=== PATIENT | male | born 1940 | race Caucasian/White ===

== ENCOUNTER 2019-02-22 12:39 | Emergency (ER) | payer MEDICARE ==
[~2019-02-22] VITALS: Ht 170.1 cm; Wt 99.8 kg
[~2019-02-22 12:39] MED LIST: ATENOLOL25 MG PO; HYZAAR 50/12.5M1 TAB PO; KLOR-CON 88 MEQ PO; LASIX20 MG PO; METFORMIN750 MG PO; NOVALIN 70/30; OMEPRAZOLE20 MG PO; PRILOSEC20 MG PO; PROAIR HFA0.09 MG/AC INH; TERAZOSIN HCL2 M1 PO; ZANTAC 7575 MG PO; [UNRECOGNIZED DRUG - OTHER]
[2019-02-22 12:40] VITALS: BP 177/78
[2019-02-22] MEDS ORDERED: CEPHALEXIN500 M1 PO (13:58)
== END 2019-02-22 14:09 | disposition home or self-care (01) ==
LOC: ED 12:39
DX: S51.012A Laceration without foreign body of left elbow, initial encounter (principal); Z79.899 Other long term (current) drug therapy; W01.198A Fall on same level from slipping, tripping and stumbling with subsequent striking against other object, initial encounter; Y93.89 Activity, other specified; Y92.098 Other place in other non-institutional residence as the place of occurrence of the external cause; Y99.8 Other external cause status

== ENCOUNTER → 2019-12-18 | Outpatient (CLI) | payer MEDICARE ==
[~2019-12-18] MED LIST changes: +CEPHALEXIN500 M1 PO
[2019-12-18 10:36] LABS: BASO % 0.3 % (0.0-1.0); EOS # 0.1 10*3/uL (0.0-0.4); HEMATOCRIT 31.5 % (42.0-52.0); LYMPH # 1.3 10*3/uL (1.3-4.4); LYMPH % 20.2 % (27.0-41.0); MEAN CELL VOLUME 92.9 fl (80.0-94.0); MEAN CORPUSCULAR HGB 30.1 pg (27.0-31.0); MEAN CORPUSCULAR HGB CONC 32.4 g/dl (33.0-37.0); MEAN PLATELET VOLUME 10.3 fl (9.6-12.3); MONO # 0.6 10*3/uL (0.1-1.0); MONO % 9.8 % (3.0-9.0); NEUT # 4.3 10*3/uL (2.3-7.9); NEUT % 67.4 % (47.0-73.0); PLATELET COUNT AUTOMATED 163 10*3/uL (130-400); RED BLOOD COUNT 3.39 10*6/uL (4.50-5.90); WHITE BLOOD COUNT 6.4 10*3/uL (4.8-10.8)
[2019-12-18 11:05] LABS: ALBUMIN 3.6 gm/dl (3.1-4.5); CREATININE 1.75 mg/dL (0.70-1.30); POTASSIUM 4.8 mmol/L (3.5-5.1); THYROXINE (T4) TOTAL 5.3 ug/dl (4.5-12.1); TOTAL PROTEIN 7.4 gm/dL (6.4-8.2)
[2019-12-18 11:11] LABS: THYROID STIM HORMONE (HS) 1.94 uIU/ml (0.358-4.75)
[2019-12-18 11:26] LABS: VITAMIN D, 25-HYDROXY 28.3 ng/mL (30-100)
== END | disposition home or self-care (01) ==
LOC: LAB 10:00
PROVIDERS: Internal Medicine
DX: Z12.5 Encounter for screening for malignant neoplasm of prostate (principal); I34.1 Nonrheumatic mitral (valve) prolapse; I10 Essential (primary) hypertension; I51.7 Cardiomegaly; E78.5 Hyperlipidemia, unspecified; E03.9 Hypothyroidism, unspecified; D51.0 Vitamin B12 deficiency anemia due to intrinsic factor deficiency; E55.9 Vitamin D deficiency, unspecified; D51.1 Vitamin B12 deficiency anemia due to selective vitamin B12 malabsorption with proteinuria

== ENCOUNTER → 2020-02-20 | Outpatient (CLI) | payer MEDICARE ==
[~2020-02-20] MED LIST changes: +AMARYL1 M1 PO; +HYDROCHLOROTH12.5 M3 PO; +LASIX40 MG PO; +LISINOPRIL10 M1 PO; +NOVOLIN 70100 UNIT/2 SQ; +VITAMIN B121000 MC1 IM; +VITAMIN D350 MCG PO; +[UNRECOGNIZED DRUG - OTHER] PO
== END | disposition home or self-care (01) ==
LOC: COVID19 00:27
DX: Z11.59 Encounter for screening for other viral diseases (principal)

== ENCOUNTER → 2020-02-27 | Day surgery (SDC) | payer MEDICARE ==
[~2020-02-27] VITALS: Ht 175.2 cm; Wt 98.0 kg
[2020-02-27 07:38] VITALS: BP 101/81
[2020-02-27 08:34] VITALS: BP 109/59
[2020-02-27 08:49] VITALS: BP 122/71
[2020-02-27 09:04] VITALS: BP 114/62
== END | disposition home or self-care (01) ==
LOC: SDC 02-23 08:45
DX: R19.7 Diarrhea, unspecified (principal); K44.9 Diaphragmatic hernia without obstruction or gangrene; K52.89 Other specified noninfective gastroenteritis and colitis; K29.70 Gastritis, unspecified, without bleeding; J44.9 Chronic obstructive pulmonary disease, unspecified; F41.9 Anxiety disorder, unspecified; K64.0 First degree hemorrhoids; I11.0 Hypertensive heart disease with heart failure; I50.9 Heart failure, unspecified; E11.9 Type 2 diabetes mellitus without complications; K21.9 Gastro-esophageal reflux disease without esophagitis; Z83.3 Family history of diabetes mellitus; Z82.49 Family history of ischemic heart disease and other diseases of the circulatory system

== ENCOUNTER 2020-07-27 21:49 | Emergency (ER) | payer MEDICARE ==
[~2020-07-27] VITALS: Wt 98.9 kg
[2020-07-27 21:58] VITALS: BP 140/59
[2020-07-27 22:31] LABS: BASO % 0.4 % (0.0-1.0); EOS # 0.3 10*3/uL (0.0-0.4); EOS % 5.5 % (1.0-4.0); HEMATOCRIT 32.6 % (42.0-52.0); LYMPH # 1.1 10*3/uL (1.3-4.4); LYMPH % 20.4 % (27.0-41.0); MEAN CORPUSCULAR HGB 30.6 pg (27.0-31.0); MEAN CORPUSCULAR HGB CONC 32.2 g/dl (33.0-37.0); MONO # 0.6 10*3/uL (0.1-1.0); MONO % 10.6 % (3.0-9.0); NEUT # 3.3 10*3/uL (2.3-7.9); NEUT % 62.9 % (47.0-73.0); PLATELET COUNT AUTOMATED 185 10*3/uL (130-400); RED BLOOD COUNT 3.43 10*6/uL (4.50-5.90); RED CELL DISTRI WIDTH 11.9 % (0-14.5); WHITE BLOOD COUNT 5.3 10*3/uL (4.8-10.8)
[2020-07-27 22:47] LABS: ALBUMIN 3.4 gm/dl (3.1-4.5); CREATININE 1.67 mg/dL (0.70-1.30); POTASSIUM 4.5 mmol/L (3.5-5.1); TOTAL PROTEIN 7.1 gm/dL (6.4-8.2)
[2020-07-27] MEDS ORDERED: DECADRON6 M1 PO ×2 (23:45)
[2020-07-27] MEDS ORDERED: ZITHROMAX250 MG PO ×2 (23:45)
== END 2020-07-28 00:47 | disposition home or self-care (01) ==
LOC: ED 21:49
PROVIDERS: Internal Medicine
DX: J44.9 Chronic obstructive pulmonary disease, unspecified (principal); Z20.828 Contact with and (suspected) exposure to other viral communicable diseases; D53.9 Nutritional anemia, unspecified; N17.9 Acute kidney failure, unspecified; Z79.899 Other long term (current) drug therapy

== ENCOUNTER 2020-08-17 13:03 | Emergency (ER) | payer MEDICARE ==
[~2020-08-17] VITALS: Ht 170.1 cm; Wt 97.1 kg
[~2020-08-17 13:03] MED LIST changes: +DECADRON6 M1 PO; +ZITHROMAX250 MG PO
[2020-08-17 14:23] VITALS: BP 134/54
[2020-08-17 14:28] LABS: BASO % 0.2 % (0.0-1.0); EOS # 0.1 10*3/uL (0.0-0.4); EOS % 2.6 % (1.0-4.0); HEMATOCRIT 29.7 % (42.0-52.0); LYMPH # 0.7 10*3/uL (1.3-4.4); MEAN CELL VOLUME 95.5 fl (80.0-94.0); MEAN CORPUSCULAR HGB 31.2 pg (27.0-31.0); MEAN CORPUSCULAR HGB CONC 32.7 g/dl (33.0-37.0); MEAN PLATELET VOLUME 9.7 fl (9.6-12.3); MONO # 0.5 10*3/uL (0.1-1.0); MONO % 9.5 % (3.0-9.0); NEUT # 3.6 10*3/uL (2.3-7.9); NEUT % 72.3 % (47.0-73.0); PLATELET COUNT AUTOMATED 102 10*3/uL (130-400); RED BLOOD COUNT 3.11 10*6/uL (4.50-5.90); WHITE BLOOD COUNT 4.9 10*3/uL (4.8-10.8)
[2020-08-17 14:38] LABS: ALBUMIN 2.6 gm/dl (3.1-4.5); CREATININE 1.5 mg/dL (0.70-1.30); POTASSIUM 4.5 mmol/L (3.5-5.1); TOTAL PROTEIN 5.9 gm/dL (6.4-8.2)
[2020-08-17] MEDS ORDERED: XARELTO20 M1 PO (14:53)
[2020-08-17] MEDS ORDERED: XARELTO1 EACH PO (14:53)
== END 2020-08-17 15:03 | disposition home or self-care (01) ==
LOC: ED 13:03
PROVIDERS: Registered Nurse
DX: I82.462 Acute embolism and thrombosis of left calf muscular vein (principal); E11.9 Type 2 diabetes mellitus without complications; J44.9 Chronic obstructive pulmonary disease, unspecified; I11.0 Hypertensive heart disease with heart failure; I50.9 Heart failure, unspecified; K21.9 Gastro-esophageal reflux disease without esophagitis; Z91.048 Other nonmedicinal substance allergy status; Z79.2 Long term (current) use of antibiotics; Z79.899 Other long term (current) drug therapy; Z79.4 Long term (current) use of insulin; Z87.891 Personal history of nicotine dependence

== ENCOUNTER 2020-08-27 00:21 | Inpatient (IN) | payer MEDICARE ==
[~2020-08-27] VITALS: Ht 170.1 cm; Wt 94.8 kg
[2020-08-27] VITALS (10 sets, daily range): BP systolic 82–137; BP diastolic 34–67
[~2020-08-27 00:21] MED LIST changes: +XARELTO1 EACH PO; +XARELTO20 M1 PO
[2020-08-27 00:40] LABS: BASO % 0.3 % (0.0-1.0); EOS % 0.8 % (1.0-4.0); HEMATOCRIT 33.6 % (42.0-52.0); LYMPH # 0.7 10*3/uL (1.3-4.4); LYMPH % 17.9 % (27.0-41.0); MEAN CELL VOLUME 96.3 fl (80.0-94.0); MEAN CORPUSCULAR HGB 30.7 pg (27.0-31.0); MEAN CORPUSCULAR HGB CONC 31.8 g/dl (33.0-37.0); MEAN PLATELET VOLUME 9.2 fl (9.6-12.3); MONO # 0.6 10*3/uL (0.1-1.0); MONO % 16.6 % (3.0-9.0); NEUT # 2.5 10*3/uL (2.3-7.9); NEUT % 64.1 % (47.0-73.0); PLATELET COUNT AUTOMATED 337 10*3/uL (130-400); RED BLOOD COUNT 3.49 10*6/uL (4.50-5.90); RED CELL DISTRI WIDTH 12.5 % (0-14.5); WHITE BLOOD COUNT 3.9 10*3/uL (4.8-10.8)
[2020-08-27 00:58] LABS: ALBUMIN 3.2 gm/dl (3.1-4.5); CREATININE 1.69 mg/dL (0.70-1.30); POTASSIUM 4.4 mmol/L (3.5-5.1); TOTAL PROTEIN 6.9 gm/dL (6.4-8.2)
[2020-08-27] MEDS ORDERED: CARTIA XT120 MG PO (02:48)
[2020-08-27 05:21] LABS: ALBUMIN 2.8 gm/dl (3.1-4.5); CREATININE 2.17 mg/dL (0.70-1.30); POTASSIUM 4.1 mmol/L (3.5-5.1)
[2020-08-27 05:30] LABS: THYROID STIM HORMONE (HS) 2.66 uIU/ml (0.358-4.75); TOTAL PROTEIN 6.1 gm/dL (6.4-8.2)
[2020-08-27 06:12] LABS: HEMATOCRIT 31.1 % (42.0-52.0); MEAN CORPUSCULAR HGB 30.9 pg (27.0-31.0); MEAN CORPUSCULAR HGB CONC 32.2 g/dl (33.0-37.0); MEAN PLATELET VOLUME 10.4 fl (9.6-12.3); PLATELET COUNT AUTOMATED 340 10*3/uL (130-400); RED BLOOD COUNT 3.24 10*6/uL (4.50-5.90); RED CELL DISTRI WIDTH 12.2 % (0-14.5); WHITE BLOOD COUNT 2.4 10*3/uL (4.8-10.8)
[2020-08-27 07:29] LABS: PLATELET SUFFICIENCY NORMAL (NORMAL); TOTAL CELLS COUNTED 100 #CELLS
[2020-08-27 07:47] LABS: VITAMIN D, 25-HYDROXY 34.1 ng/mL (30-100)
[2020-08-27 07:48] LABS: FERRITIN 162.9 ng/mL (22.0-322.0)
[2020-08-27] MEDS ORDERED: VITAMIN B-121000 MC2 PO (12:52)
[2020-08-28] VITALS: BP 131/55
[2020-08-28 05:41] LABS: CREATININE 1.54 mg/dL (0.70-1.30); POTASSIUM 4.2 mmol/L (3.5-5.1)
[2020-08-28 06:18] LABS: BASO % 0.1 % (0.0-1.0); HEMATOCRIT 32.2 % (42.0-52.0); LYMPH # 0.8 10*3/uL (1.3-4.4); LYMPH % 11.1 % (27.0-41.0); MEAN CELL VOLUME 98.2 fl (80.0-94.0); MEAN CORPUSCULAR HGB 31.1 pg (27.0-31.0); MEAN CORPUSCULAR HGB CONC 31.7 g/dl (33.0-37.0); MEAN PLATELET VOLUME 10.3 fl (9.6-12.3); MONO # 0.6 10*3/uL (0.1-1.0); MONO % 8.2 % (3.0-9.0); NEUT # 5.8 10*3/uL (2.3-7.9); NEUT % 80.2 % (47.0-73.0); PLATELET COUNT AUTOMATED 362 10*3/uL (130-400); RED BLOOD COUNT 3.28 10*6/uL (4.50-5.90); RED CELL DISTRI WIDTH 12.6 % (0-14.5); WHITE BLOOD COUNT 7.2 10*3/uL (4.8-10.8)
[2020-08-28 08:00] VITALS: BP 122/60
[2020-08-28 12:00] VITALS: BP 138/68
[2020-08-28 16:00] VITALS: BP 130/67
[2020-08-28 20:00] VITALS: BP 131/61
[2020-08-29] VITALS: BP 105/81; BP 112/93
[2020-08-29 05:24] LABS: BUN 32 mg/dl (7-24); CHLORIDE 113 mmol/L (98-107); POTASSIUM 3.7 mmol/L (3.5-5.1); SODIUM 143 mmol/L (136-145)
[2020-08-29 06:12] LABS: BASO % 0.2 % (0.0-1.0); EOS % 0.3 % (1.0-4.0); HEMATOCRIT 30.5 % (42.0-52.0); LYMPH # 0.8 10*3/uL (1.3-4.4); LYMPH % 9.3 % (27.0-41.0); MEAN CELL VOLUME 95.9 fl (80.0-94.0); MEAN CORPUSCULAR HGB 30.2 pg (27.0-31.0); MEAN CORPUSCULAR HGB CONC 31.5 g/dl (33.0-37.0); MEAN PLATELET VOLUME 10.3 fl (9.6-12.3); MONO % 11.3 % (3.0-9.0); NEUT # 6.7 10*3/uL (2.3-7.9); NEUT % 77.7 % (47.0-73.0); PLATELET COUNT AUTOMATED 332 10*3/uL (130-400); RED BLOOD COUNT 3.18 10*6/uL (4.50-5.90); RED CELL DISTRI WIDTH 12.4 % (0-14.5); WHITE BLOOD COUNT 8.6 10*3/uL (4.8-10.8)
[2020-08-29 08:00] VITALS: BP 135/66
[2020-08-29 12:00] VITALS: BP 171/76
[2020-08-29 16:00] VITALS: BP 128/71; BP 137/64
[2020-08-29 20:00] VITALS: BP 150/72
[2020-08-30] VITALS: BP 157/74
[2020-08-30 06:13] LABS: HEMATOCRIT 29.8 % (42.0-52.0); MEAN CELL VOLUME 93.7 fl (80.0-94.0); MEAN CORPUSCULAR HGB 30.8 pg (27.0-31.0); MEAN CORPUSCULAR HGB CONC 32.9 g/dl (33.0-37.0); MEAN PLATELET VOLUME 10.3 fl (9.6-12.3); PLATELET COUNT AUTOMATED 294 10*3/uL (130-400); RED BLOOD COUNT 3.18 10*6/uL (4.50-5.90); WHITE BLOOD COUNT 9.8 10*3/uL (4.8-10.8)
[2020-08-30 06:32] LABS: BUN 23 mg/dl (7-24); CHLORIDE 109 mmol/L (98-107); POTASSIUM 3.8 mmol/L (3.5-5.1); SODIUM 139 mmol/L (136-145)
[2020-08-30 06:34] LABS: CREATININE 1.22 mg/dL (0.70-1.30)
[2020-08-30 07:08] LABS: TOTAL CELLS COUNTED 100 #CELLS
[2020-08-30 07:09] LABS: BURR CELLS FEW; OVALOCYTES FEW; PLATELET SUFFICIENCY NORMAL (NORMAL)
[2020-08-30 08:00] VITALS: BP 164/67
== END 2020-08-30 12:32 | disposition home or self-care (01) | DRG 388 ==
LOC: ED 00:21 → EDHOLD 01:58 → 4E 01:58
PROVIDERS: Family Medicine; Internal Medicine; Student in an Organized Health Care Education/Training Program; ADMIT Internal Medicine; ATTEND Internal Medicine
PROC: 0D9670Z Drainage of Stomach with Drainage Device, Via Natural or Artificial Opening (ICD-10-PCS; principal; 2020-08-27)
DX: K56.600 Partial intestinal obstruction, unspecified as to cause (principal); J96.00 Acute respiratory failure, unspecified whether with hypoxia or hypercapnia; N17.0 Acute kidney failure with tubular necrosis; J44.1 Chronic obstructive pulmonary disease with (acute) exacerbation; I13.0 Hypertensive heart and chronic kidney disease with heart failure and stage 1 through stage 4 chronic kidney disease, or unspecified chronic kidney disease; I82.502 Chronic embolism and thrombosis of unspecified deep veins of left lower extremity; I50.9 Heart failure, unspecified; E11.22 Type 2 diabetes mellitus with diabetic chronic kidney disease; L50.9 Urticaria, unspecified; E87.8 Other disorders of electrolyte and fluid balance, not elsewhere classified; E11.65 Type 2 diabetes mellitus with hyperglycemia; D53.9 Nutritional anemia, unspecified; K44.9 Diaphragmatic hernia without obstruction or gangrene; K82.8 Other specified diseases of gallbladder; N20.0 Calculus of kidney; N18.32 Chronic kidney disease, stage 3b; E53.8 Deficiency of other specified B group vitamins; E55.9 Vitamin D deficiency, unspecified; K21.9 Gastro-esophageal reflux disease without esophagitis; E66.9 Obesity, unspecified; Z88.8 Allergy status to other drugs, medicaments and biological substances; Z79.4 Long term (current) use of insulin; Z87.891 Personal history of nicotine dependence; Z80.1 Family history of malignant neoplasm of trachea, bronchus and lung; Z82.5 Family history of asthma and other chronic lower respiratory diseases; Z79.899 Other long term (current) drug therapy

== ENCOUNTER → 2022-03-31 | Outpatient (CLI) | payer MEDICARE ==
[~2022-03-31] MED LIST changes: +CARTIA XT120 MG PO; +VITAMIN B-121000 MC2 PO
== END | disposition home or self-care (01) ==
LOC: RESCLI 14:16
PROVIDERS: ATTEND Internal Medicine
DX: I10 Essential (primary) hypertension (principal); I82.402 Acute embolism and thrombosis of unspecified deep veins of left lower extremity; Z13.820 Encounter for screening for osteoporosis; J44.9 Chronic obstructive pulmonary disease, unspecified; E11.9 Type 2 diabetes mellitus without complications; E55.9 Vitamin D deficiency, unspecified; K21.9 Gastro-esophageal reflux disease without esophagitis; Z98.890 Other specified postprocedural states; Z79.899 Other long term (current) drug therapy

== ENCOUNTER → 2023-05-25 | Outpatient (CLI) | payer OTHER | END | disposition home or self-care (01) | LOC: LAB 13:22 → MRI 13:22 | PROVIDERS: ATTEND Specialist | DX: Z01.818 Encounter for other preprocedural examination (principal); G31.9 Degenerative disease of nervous system, unspecified; I67.82 Cerebral ischemia ==

== ENCOUNTER → 2023-07-03 | Outpatient (CLI) | payer OTHER | END | disposition home or self-care (01) | LOC: RESCLI 01:13 | PROVIDERS: ATTEND Student in an Organized Health Care Education/Training Program | DX: I12.9 Hypertensive chronic kidney disease with stage 1 through stage 4 chronic kidney disease, or unspecified chronic kidney disease (principal); I82.402 Acute embolism and thrombosis of unspecified deep veins of left lower extremity; J44.9 Chronic obstructive pulmonary disease, unspecified; K21.9 Gastro-esophageal reflux disease without esophagitis; J44.1 Chronic obstructive pulmonary disease with (acute) exacerbation; N18.31 Chronic kidney disease, stage 3a; I63.9 Cerebral infarction, unspecified; R60.0 Localized edema; D50.8 Other iron deficiency anemias; E11.22 Type 2 diabetes mellitus with diabetic chronic kidney disease; Z79.899 Other long term (current) drug therapy; Z87.891 Personal history of nicotine dependence; Z86.79 Personal history of other diseases of the circulatory system ==

== ENCOUNTER 2023-09-14 16:56 | Emergency (ER) | payer OTHER ==
[~2023-09-14] VITALS: Ht 175.2 cm; Wt 93.4 kg
[2023-09-14] MEDS ORDERED: Ondansetron Hydrochloride 4 MG/2 ML VIAL IV ONE (18:20)
[2023-09-14] MEDS ORDERED: SODIUM CHLORIDE 0.9% 1,000 ML IV ONE (18:20)
[2023-09-14] MEDS ORDERED: FAMOTIDINE 50 ML IV ONE (18:20)
[2023-09-14 18:38] LABS: BASO % 0.3 % (0.0-1.0); EOS # 0.1 10*3/uL (0.0-0.4); EOS % 1.3 % (1.0-4.0); LYMPH # 0.7 10*3/uL (1.3-4.4); LYMPH % 10.6 % (27.0-41.0); MEAN CORPUSCULAR HGB 31.6 pg (27.0-31.0); MEAN CORPUSCULAR HGB CONC 32.6 g/dl (33.0-37.0); MONO # 0.4 10*3/uL (0.1-1.0); MONO % 5.9 % (3.0-9.0); NEUT % 81.7 % (47.0-73.0); PLATELET COUNT AUTOMATED 174 10*3/uL (130-400); RED BLOOD COUNT 3.61 10*6/uL (4.50-5.90); RED CELL DISTRI WIDTH 12.4 % (0-14.5); WHITE BLOOD COUNT 6.1 10*3/uL (4.8-10.8)
[2023-09-14 18:49] LABS: ACT PARTIAL THROMBO TIME 64.2 SECONDS (20.0-32.1)
[2023-09-14 19:01] LABS: ALKALINE PHOSPHATASE 69 U/L (46-116); BUN 19 mg/dl (9-23); CHLORIDE 105 mmol/L (98-107); LIPASE 49 U/L (12-53); POTASSIUM 3.4 mmol/L (3.4-5.1); SGPT/ALT 16 U/L (5-49); TOTAL PROTEIN 6.9 gm/dL (6.0-8.0)
[2023-09-15 07:42] VITALS: BP 106/66
[2023-09-15 07:53] LABS: BILIRUBIN Negative (Negative); BLOOD Negative (Negative); CLARITY Clear (Clear); COLOR Yellow (Yellow); GLUCOSE Negative (Negative); KETONE Trace (Negative); LEUKO ESTERASE Negative (Negative); NITRITE Negative (Negative)
[2023-09-15 08:08] LABS: BACTERIA TRACE; MUCOUS 1+
[2023-09-15] MEDS ORDERED: Metoclopramide Hydrochloride 10 MG/2 ML AMP IV ONE (09:05)
[2023-09-15] MEDS ORDERED: diphenhydrAMINE hydrochloride 50 MG/ML VIAL IV ONE (09:05)
== END 2023-09-15 11:25 | disposition short-term general hospital (02) ==
LOC: ED 16:56
PROVIDERS: Emergency Medicine
DX: K31.89 Other diseases of stomach and duodenum (principal); J44.9 Chronic obstructive pulmonary disease, unspecified; D53.9 Nutritional anemia, unspecified; E11.22 Type 2 diabetes mellitus with diabetic chronic kidney disease; I13.0 Hypertensive heart and chronic kidney disease with heart failure and stage 1 through stage 4 chronic kidney disease, or unspecified chronic kidney disease; N18.31 Chronic kidney disease, stage 3a; I50.9 Heart failure, unspecified; Z86.718 Personal history of other venous thrombosis and embolism; Z79.4 Long term (current) use of insulin; Z88.8 Allergy status to other drugs, medicaments and biological substances; Z98.890 Other specified postprocedural states; Z87.891 Personal history of nicotine dependence

== ENCOUNTER 2023-10-06 12:08 | Emergency (ER) | payer OTHER ==
[~2023-10-06] VITALS: Ht 172.7 cm; Wt 99.8 kg
[2023-10-06 12:17] VITALS: BP 120/55
[2023-10-06] MEDS ORDERED: Acetaminophen/Oxycodone 5 MG/325 MG TABLET PO ONE (12:25)
[2023-10-06] MEDS ORDERED: TYLENOL EXTRA500 M2 PO (13:23)
== END 2023-10-06 13:27 | disposition home or self-care (01) ==
LOC: ED 12:08
DX: S00.01XA Abrasion of scalp, initial encounter (principal); M54.50 Low back pain, unspecified; R42 Dizziness and giddiness; J44.9 Chronic obstructive pulmonary disease, unspecified; I13.0 Hypertensive heart and chronic kidney disease with heart failure and stage 1 through stage 4 chronic kidney disease, or unspecified chronic kidney disease; E11.22 Type 2 diabetes mellitus with diabetic chronic kidney disease; N18.9 Chronic kidney disease, unspecified; I50.9 Heart failure, unspecified; E78.5 Hyperlipidemia, unspecified; Z86.718 Personal history of other venous thrombosis and embolism; Z91.048 Other nonmedicinal substance allergy status; Z79.899 Other long term (current) drug therapy; Z79.4 Long term (current) use of insulin; Z98.890 Other specified postprocedural states; Z87.891 Personal history of nicotine dependence; W19.XXXA Unspecified fall, initial encounter; Y93.89 Activity, other specified; Y92.89 Other specified places as the place of occurrence of the external cause; Y99.8 Other external cause status

== ENCOUNTER 2023-10-08 10:49 | Emergency (ER) | payer OTHER ==
[~2023-10-08] VITALS: Wt 102.3 kg
[~2023-10-08 10:49] MED LIST changes: +TYLENOL EXTRA500 M2 PO
[2023-10-08] MEDS ORDERED: CARDIZEM120 MG PO (11:31)
[2023-10-08] MEDS ORDERED: ELIQUIS5 M1 PO (11:31)
[2023-10-08] MEDS ORDERED: ASPIRIN ADULT L81 M1 PO (11:31)
[2023-10-08] MEDS ORDERED: MAXIMUM D3325 MCG PO (11:32)
[2023-10-08] MEDS ORDERED: FERROUS SULFAT325 MG PO (11:33)
[2023-10-08] MEDS ORDERED: FUROSEMIDE 40 MG/4 ML VIAL IV ONE (11:35)
[2023-10-08] MEDS ORDERED: MIRALAX POWDER17 G1 PO (11:35)
[2023-10-08] MEDS ORDERED: IPRATROPIU0.2 MG/1 M NEB (11:35)
[2023-10-08] MEDS ORDERED: IRBESARTAN75 M1 PO (11:36)
[2023-10-08] MEDS ORDERED: ONDANSETRON8 MG PO (11:37)
[2023-10-08] MEDS ORDERED: PROAIR RESPICL90 MCG INH (11:38)
[2023-10-08] MEDS ORDERED: VITAMIN B-12250 MCG PO (11:39)
[2023-10-08 11:56] LABS: BASO % 0.3 % (0.0-1.0); EOS # 0.3 10*3/uL (0.0-0.4); EOS % 2.3 % (1.0-4.0); HEMATOCRIT 24.2 % (42.0-52.0); LYMPH # 0.7 10*3/uL (1.3-4.4); LYMPH % 5.9 % (27.0-41.0); MEAN CELL VOLUME 102.5 fl (80.0-94.0); MEAN CORPUSCULAR HGB 31.4 pg (27.0-31.0); MEAN CORPUSCULAR HGB CONC 30.6 g/dl (33.0-37.0); MEAN PLATELET VOLUME 10.4 fl (9.6-12.3); NEUT # 10.2 10*3/uL (2.3-7.9); PLATELET COUNT AUTOMATED 189 10*3/uL (130-400); RED BLOOD COUNT 2.36 10*6/uL (4.50-5.90); RED CELL DISTRI WIDTH 13.9 % (0-14.5); WHITE BLOOD COUNT 12.3 10*3/uL (4.8-10.8)
[2023-10-08 12:27] LABS: POTASSIUM 3.9 mmol/L (3.4-5.1); TOTAL PROTEIN 5.5 gm/dL (6.0-8.0)
[2023-10-08 13:37] LABS: ACT PARTIAL THROMBO TIME 70.2 SECONDS (20.0-32.1)
[2023-10-08 13:43] LABS: BILIRUBIN Negative (Negative); BLOOD Trace-Lysed (Negative); COLOR Yellow (Yellow); GLUCOSE Negative (Negative); KETONE Negative (Negative); LEUKO ESTERASE 1+ (Negative); NITRITE Negative (Negative); UROBILINOGEN 0.2 E.U./dl (0.0-1.0)
[2023-10-08 14:11] LABS: BACTERIA 1+; CLARITY Cloudy (Clear); WBC 16-20 wbc/hpf (0-5)
[2023-10-08] MEDS ORDERED: Ceftriaxone Sodium 1 GM/10 ML SYR IV ONE (14:35)
[2023-10-08] MEDS ORDERED: LORazepam 1 MG TAB PO ONE (22:40)
[2023-10-09] MEDS ORDERED: ACETAMINOPHEN 500 MG TAB PO PRN (17:25)
[2023-10-09] MEDS ORDERED: DEXTROSE 10 % IN WATER 250 ML IV PRN (17:30)
[2023-10-09] MEDS ORDERED: DILTIAZEM CD 120 MG CAP PO SCH (17:42)
[2023-10-09 18:31] VITALS: BP 113/70
[2023-10-09] MEDS ORDERED: IPRATROPIUM BROMIDE 0.5 MG/2.5 ML AMP NEB SCH (21:00)
[2023-10-09] MEDS ORDERED: APIXABAN 5 MG TAB PO SCH (22:00)
[2023-10-09] MEDS ORDERED: INSULIN LISPRO 1 UNIT/0.01 ML SQ SCH (22:00)
[2023-10-10] MEDS ORDERED: OMEPRAZOLE 20 MG CAP PO SCH (06:00)
[2023-10-10] MEDS ORDERED: Losartan Potassium 25 MG TAB PO SCH (09:00)
[2023-10-10] MEDS ORDERED: Ondansetron Hydrochloride 4 MG TAB PO SCH (09:00)
[2023-10-10] MEDS ORDERED: FUROSEMIDE 40 MG/4 ML VIAL IV SCH (10:00)
[2023-10-10] MEDS ORDERED: ASPIRIN, CHEWABLE 81 MG TAB PO SCH (10:00)
== END 2023-10-09 20:10 | disposition short-term general hospital (02) ==
LOC: ED 10:49
PROVIDERS: Nurse Practitioner Family
DX: I13.0 Hypertensive heart and chronic kidney disease with heart failure and stage 1 through stage 4 chronic kidney disease, or unspecified chronic kidney disease (principal); E11.22 Type 2 diabetes mellitus with diabetic chronic kidney disease; N18.30 Chronic kidney disease, stage 3 unspecified; I50.9 Heart failure, unspecified; I21.4 Non-ST elevation (NSTEMI) myocardial infarction; N39.0 Urinary tract infection, site not specified; R79.1 Abnormal coagulation profile; J44.9 Chronic obstructive pulmonary disease, unspecified; K21.9 Gastro-esophageal reflux disease without esophagitis; E66.9 Obesity, unspecified; Z86.718 Personal history of other venous thrombosis and embolism; Z91.048 Other nonmedicinal substance allergy status; Z79.899 Other long term (current) drug therapy; Z79.82 Long term (current) use of aspirin; Z68.30 Body mass index [BMI] 30.0-30.9, adult; Z98.890 Other specified postprocedural states; Z87.891 Personal history of nicotine dependence

== ENCOUNTER 2023-12-05 11:59 | Inpatient (IN) | payer OTHER ==
[~2023-12-05] VITALS: Ht 172.7 cm; Wt 79.1 kg
[~2023-12-05 11:59] MED LIST changes: +AMIODARONE HYD200 MG PO; +ASPIRIN ADULT L81 M1 PO; +BROVANA15 MCG/2 M NEB; +CARDIZEM120 MG PO; +DOXAZOSIN2 MG PO; +ELIQUIS5 M1 PO; +FERROUS SULFAT325 MG PO; +FUROSEMIDE20 M1 PO; +GENTLE LAXATIVE10 MG R; +HYDROCODONE-AC1 EAC1 PO; +IPRATROPIU0.2 MG/1 M NEB; +IRBESARTAN75 M1 PO; +IRON325 M1 PO; +Ipratropium Brom3 ML INH; +KLOR-CON 1010 ME1 PO; -KLOR-CON 88 MEQ PO; +LANTUS SOL100 UNIT/1 SC; +MAXIMUM D3325 MCG PO; +METOPROLOL SUCC25 M2 PO; +METOPROLOL SUCC50 M1 PO; +MIRALAX POWDER17 G1 PO; +NATURE'S BLEND F1 MG PO; +ONDANSETRON8 MG PO; +POTASSIUM CHLOR8 ME1 PO; +PROAIR RESPICL90 MCG INH; +PULMICORT RESP0.5 M1 INH; +VITAMIN B-12250 MCG PO
[2023-12-05 12:05] VITALS: BP 124/51
[2023-12-05] MEDS ORDERED: SODIUM CHLORIDE 0.9% 1,000 ML IV ONE (12:05)
[2023-12-05 12:26] LABS: BASO % 0.5 % (0.0-1.0); EOS # 0.4 10*3/uL (0.0-0.4); EOS % 4.8 % (1.0-4.0); HEMATOCRIT 30.1 % (42.0-52.0); LYMPH # 1.5 10*3/uL (1.3-4.4); LYMPH % 20.7 % (27.0-41.0); MEAN CELL VOLUME 96.5 fl (80.0-94.0); MEAN CORPUSCULAR HGB 30.1 pg (27.0-31.0); MEAN CORPUSCULAR HGB CONC 31.2 g/dl (33.0-37.0); MEAN PLATELET VOLUME 9.7 fl (9.6-12.3); MONO # 0.6 10*3/uL (0.1-1.0); MONO % 7.9 % (3.0-9.0); NEUT # 4.9 10*3/uL (2.3-7.9); NEUT % 65.7 % (47.0-73.0); PLATELET COUNT AUTOMATED 285 10*3/uL (130-400); RED BLOOD COUNT 3.12 10*6/uL (4.50-5.90); RED CELL DISTRI WIDTH 13.8 % (0-14.5); WHITE BLOOD COUNT 7.4 10*3/uL (4.8-10.8)
[2023-12-05 12:51] LABS: ALKALINE PHOSPHATASE 95 U/L (46-116); BUN 15 mg/dl (9-23); CHLORIDE 102 mmol/L (98-107); LIPASE 46 U/L (12-53); POTASSIUM 3.3 mmol/L (3.4-5.1); SGPT/ALT 9 U/L (5-49); TOTAL PROTEIN 6.7 gm/dL (6.0-8.0)
[2023-12-05 13:42] LABS: ACT PARTIAL THROMBO TIME 72.8 SECONDS (20.0-32.1)
[2023-12-05 14:49] LABS: BILIRUBIN Negative (Negative); BLOOD Negative (Negative); CLARITY Clear (Clear); COLOR Yellow (Yellow); GLUCOSE Negative (Negative); KETONE Negative (Negative); LEUKO ESTERASE Negative (Negative); NITRITE Negative (Negative); UROBILINOGEN 0.2 E.U./dl (0.0-1.0)
[2023-12-05] MEDS ORDERED: POTASSIUM CHLORIDE 20 MEQ TAB PO ONE (14:55)
[2023-12-05 15:02] LABS: BACTERIA 1+; WBC 0-2 wbc/hpf (0-5); YEAST TRACE
[2023-12-05] MEDS ORDERED: Acetaminophen/Hydrocodone 5 MG/325 MG TABLET PO PRN (15:45)
[2023-12-05] MEDS ORDERED: MORPHINE Sulfate 2 MG/ML SYR IV PRN (15:45)
[2023-12-05] MEDS ORDERED: BISACODYL 5 MG TAB PO PRN (15:45)
[2023-12-05] MEDS ORDERED: ACETAMINOPHEN 325 MG TAB PO PRN (15:45)
[2023-12-05] MEDS ORDERED: BISACODYL 10 MG SUPP R PRN (15:45)
[2023-12-05] MEDS ORDERED: Magnesium Hydroxide 30 ML UDC PO PRN (15:45)
[2023-12-05] MEDS ORDERED: Pantoprazole Sodium 40 MG TAB PO PRN (15:50)
[2023-12-05] MEDS ORDERED: Albuterol Sulf/Ipratropium 3 ML VIAL NEB PRN (15:55)
[2023-12-05] MEDS ORDERED: DEXTROSE 10 % IN WATER 250 ML IV PRN ×2 (16:00→16:15)
[2023-12-05 16:10] VITALS: BP 139/75
[2023-12-05] MEDS ORDERED: OMEPRAZOLE MAGN20 MG PO (16:22)
[2023-12-05] MEDS ORDERED: VITAMIN D250 MC1 PO (16:25)
[2023-12-05] MEDS ORDERED: INSULIN LISPRO 1 UNIT/0.01 ML SQ SCH ×2 (16:30)
[2023-12-05] MEDS ORDERED: FUROSEMIDE 20 MG TAB PO SCH (18:00)
[2023-12-05 18:07] VITALS: BP 140/62
[2023-12-05 20:15] VITALS: BP 102/52; BP 112/52
[2023-12-05] MEDS ORDERED: APIXABAN 5 MG TAB PO SCH (22:00)
[2023-12-05 23:55] VITALS: BP 125/86
[2023-12-06] VITALS (9 sets, daily range): BP systolic 80–154; BP diastolic 23–80
[2023-12-06] MEDS ORDERED: Ondansetron Hydrochloride 4 MG/2 ML VIAL IV ONE (01:10)
[2023-12-06 05:53] LABS: BUN 18 mg/dl (9-23); CHLORIDE 104 mmol/L (98-107)
[2023-12-06 06:19] LABS: BASO % 0.4 % (0.0-1.0); EOS # 0.1 10*3/uL (0.0-0.4); EOS % 1.3 % (1.0-4.0); HEMATOCRIT 31.4 % (42.0-52.0); LYMPH # 1.5 10*3/uL (1.3-4.4); LYMPH % 19.5 % (27.0-41.0); MEAN CELL VOLUME 97.5 fl (80.0-94.0); MEAN CORPUSCULAR HGB 30.1 pg (27.0-31.0); MEAN CORPUSCULAR HGB CONC 30.9 g/dl (33.0-37.0); MEAN PLATELET VOLUME 10.6 fl (9.6-12.3); MONO # 0.6 10*3/uL (0.1-1.0); MONO % 7.7 % (3.0-9.0); NEUT # 5.3 10*3/uL (2.3-7.9); NEUT % 70.6 % (47.0-73.0); PLATELET COUNT AUTOMATED 312 10*3/uL (130-400); RED BLOOD COUNT 3.22 10*6/uL (4.50-5.90); RED CELL DISTRI WIDTH 13.8 % (0-14.5); WHITE BLOOD COUNT 7.5 10*3/uL (4.8-10.8)
[2023-12-06] MEDS ORDERED: Vitamin D 1,000 IU TAB (25 MCG) PO SCH (10:00)
[2023-12-06] MEDS ORDERED: METOPROLOL SUCCINATE XR 25 MG TAB PO SCH (10:00)
[2023-12-06] MEDS ORDERED: POTASSIUM CHLORIDE 8 MEQ TAB PO SCH (10:00)
[2023-12-06] MEDS ORDERED: FERROUS SULFATE 325 MG TAB PO SCH (10:00)
[2023-12-06] MEDS ORDERED: Cholecalciferol 5,000 IU CAP (125 MCG) PO SCH (10:00)
[2023-12-06] MEDS ORDERED: Menthol/Zinc Oxide 4 GM THIN T PRN (11:35)
[2023-12-06] MEDS ORDERED: SODIUM CHLORIDE 0.9% 1,000 ML IV SCH (13:45)
[2023-12-06] MEDS ORDERED: Menthol/Zinc Oxide 4 GM THIN T SCH (22:00)
[2023-12-06] MEDS ORDERED: NYSTATIN 15 GM BOT T SCH (22:00)
[2023-12-06] MEDS ORDERED: HEEL PROTECTOR DEVICE ONE (22:42)
[2023-12-06] MEDS ORDERED: FOAM BANDAGE HEEL T ONE (22:42)
[2023-12-06] MEDS ORDERED: CHAIR CUSHION DEVICE ONE (22:42)
[2023-12-07 00:19] VITALS: BP 128/59
[2023-12-07] MEDS ORDERED: FOAM BANDAGE 6X6 T ONE (02:47)
[2023-12-07 08:18] VITALS: BP 156/76
[2023-12-07 12:00] VITALS: BP 112/68
[2023-12-07 16:00] VITALS: BP 118/59
[2023-12-07 20:00] VITALS: BP 137/52
[2023-12-08] VITALS: BP 153/68
[2023-12-08 08:00] VITALS: BP 154/62
[2023-12-08 13:00] VITALS: BP 108/36
[2023-12-08 16:00] VITALS: BP 106/32
[2023-12-08 20:00] VITALS: BP 124/68
[2023-12-09] VITALS: BP 149/64
[2023-12-09 08:00] VITALS: BP 97/54
[2023-12-09 12:00] VITALS: BP 127/59
[2023-12-09 20:00] VITALS: BP 98/60
[2023-12-10] VITALS: BP 141/62
[2023-12-10 08:00] VITALS: BP 140/67
[2023-12-10 12:00] VITALS: BP 108/60
[2023-12-10 16:00] VITALS: BP 115/69
[2023-12-10 20:00] VITALS: BP 114/62
[2023-12-11] VITALS: BP 134/60
[2023-12-11 08:00] VITALS: BP 126/71
[2023-12-11] MEDS ORDERED: IRON325 M1 PO (11:57)
[2023-12-11] MEDS ORDERED: Humalog SQ (11:57)
[2023-12-11 12:00] VITALS: BP 132/66
[2023-12-11 16:00] VITALS: BP 116/46
== END 2023-12-11 17:02 | DRG 884 ==
LOC: ED 11:59 → 4E 14:59 → EDHOLD 14:59 → 4E 12-06 19:27
PROVIDERS: Internal Medicine; Student in an Organized Health Care Education/Training Program; ADMIT Family Medicine; ATTEND Family Medicine
PROC: 5A09357 Assistance with Respiratory Ventilation, Less than 24 Consecutive Hours, Continuous Positive Airway Pressure (ICD-10-PCS; principal; 2023-12-11)
DX: R54 Age-related physical debility (principal); E43 Unspecified severe protein-calorie malnutrition; I50.32 Chronic diastolic (congestive) heart failure; I48.20 Chronic atrial fibrillation, unspecified; I13.0 Hypertensive heart and chronic kidney disease with heart failure and stage 1 through stage 4 chronic kidney disease, or unspecified chronic kidney disease; G90.9 Disorder of the autonomic nervous system, unspecified; Z66 Do not resuscitate; D53.9 Nutritional anemia, unspecified; N18.30 Chronic kidney disease, stage 3 unspecified; E87.6 Hypokalemia; R82.71 Bacteriuria; K21.9 Gastro-esophageal reflux disease without esophagitis; J44.9 Chronic obstructive pulmonary disease, unspecified; E55.9 Vitamin D deficiency, unspecified; W18.30XA Fall on same level, unspecified, initial encounter; E11.22 Type 2 diabetes mellitus with diabetic chronic kidney disease; E11.65 Type 2 diabetes mellitus with hyperglycemia; L89.611 Pressure ulcer of right heel, stage 1; L89.106 Pressure-induced deep tissue damage of unspecified part of back; L89.626 Pressure-induced deep tissue damage of left heel; E61.1 Iron deficiency; E53.8 Deficiency of other specified B group vitamins; S22.32XD Fracture of one rib, left side, subsequent encounter for fracture with routine healing; Y93.89 Activity, other specified; Y92.89 Other specified places as the place of occurrence of the external cause; Y99.8 Other external cause status; Z86.718 Personal history of other venous thrombosis and embolism; I25.2 Old myocardial infarction; Z80.1 Family history of malignant neoplasm of trachea, bronchus and lung; Z82.5 Family history of asthma and other chronic lower respiratory diseases; Z79.4 Long term (current) use of insulin; Z79.899 Other long term (current) drug therapy; Z68.26 Body mass index [BMI] 26.0-26.9, adult